=== PATIENT | male | born 1980 | race African-American/Black ===

== ENCOUNTER 2020-11-15 09:38 | Emergency (ER) | payer MEDICAID, OTHER ==
[~2020-11-15] VITALS: Ht 182.9 cm; Wt 98.0 kg
[2020-11-15 09:40] VITALS: BP 141/89
[2020-11-15] MEDS ORDERED: IBUPROFEN 600MG TABLET PO ONE (10:45)
[2020-11-15] MEDS ORDERED: LIDOCAINE HCL/PF 1% 10 MG/ML 5ML VIAL INFIL ONE (10:45)
[2020-11-15] MEDS ORDERED: IBUP-2029 PO (11:34)
== END 2020-11-15 11:49 | disposition home or self-care (01) ==
LOC: ER 09:47
DX: S61.214A Laceration without foreign body of right ring finger without damage to nail, initial encounter (principal); W25.XXXA Contact with sharp glass, initial encounter; Y93.89 Activity, other specified; Y92.89 Other specified places as the place of occurrence of the external cause; Y99.8 Other external cause status
CPT/HCPCS: 12001; 99282; J3490; Z7610

== ENCOUNTER 2022-03-15 12:49 | Emergency (ER) | payer OTHER ==
[~2022-03-15] VITALS: Ht 172.7 cm; Wt 78.0 kg
[~2022-03-15 12:49] MED LIST: IBUP-2029 PO
[2022-03-15 12:59] VITALS: BP 127/84
[2022-03-15] MEDS ORDERED: CEPH500C2 MT (14:10)
== END 2022-03-15 14:25 | disposition home or self-care (01) ==
LOC: ER 12:49
DX: L03.012 Cellulitis of left finger (principal); J45.909 Unspecified asthma, uncomplicated
CPT/HCPCS: 99283

== ENCOUNTER 2022-12-13 19:33 | Emergency (ER) | payer SELFPAY ==
[~2022-12-13] VITALS: Ht 182.9 cm; Wt 96.0 kg
[~2022-12-13 19:33] MED LIST changes: +CEPH500C2 MT
[2022-12-13 19:43] VITALS: O2SAT 100
[2022-12-13] MEDS ORDERED: TRAMADOL 50MG TABLET PO ONE (22:15)
[2022-12-13] MEDS ORDERED: FLUORESCEIN SODIUM 1MG/STRIP RIGHTEYE ONE (22:45)
[2022-12-13] MEDS ORDERED: TETRACAINE 0.5% OPHTH DROPS 4ML LEFTEYE ONE (23:00)
[2022-12-13] MEDS ORDERED: KETOROLAC 30MG/ML VIAL IM ONE (23:00)
[2022-12-13] MEDS ORDERED: ERYT1OIN6 EACHEYE (23:05)
[2022-12-13] MEDS ORDERED: NAPR-1176 MT (23:45)
[2022-12-14 00:29] VITALS: BP 115/80; PULSE 98; RESP 16; TEMP 98.6
== END 2022-12-14 00:29 | disposition home or self-care (01) ==
LOC: ER 19:33
DX: S06.9XAA Unspecified intracranial injury with loss of consciousness status unknown, initial encounter (principal); S05.01XA Injury of conjunctiva and corneal abrasion without foreign body, right eye, initial encounter; Y04.0XXA Assault by unarmed brawl or fight, initial encounter; Y93.89 Activity, other specified; Y92.89 Other specified places as the place of occurrence of the external cause; Y99.8 Other external cause status
CPT/HCPCS: 70150; 96372; 99283; J1885; Z7610

== ENCOUNTER 2023-05-04 06:26 | Emergency (ER) | payer SELFPAY ==
[~2023-05-04] VITALS: Ht 180.3 cm; Wt 100.0 kg
[~2023-05-04 06:26] MED LIST changes: +ERYT1OIN6 EACHEYE; +NAPR-1176 MT
[2023-05-04 06:39] VITALS: BP 129/89; PULSE 108; RESP 18; TEMP 98.5; O2SAT 100
== END 2023-05-04 08:10 | disposition left against medical advice (07) ==
LOC: ER 06:26
DX: Z53.21 Procedure and treatment not carried out due to patient leaving prior to being seen by health care provider (principal)
CPT/HCPCS: 99281

== ENCOUNTER 2023-11-10 08:27 | Inpatient (IN) | payer MEDICAID ==
[~2023-11-10] VITALS: Ht 188 cm; Wt 98.9 kg
[2023-11-10 08:29] VITALS: O2SAT 99
[2023-11-10] MEDS: IOHEXOL-350 100 ML BOTTLE ONE (09:08)
[2023-11-10 09:15] LABS: BASOPHILS % 0.4 % (0.0-2.0); EOSINOPHILS % 2.1 % (0.0-5.0); HEMATOCRIT. 43.4 % (42.0-52.0); HEMOGLOBIN. 14.2 g/dL (14.0-18.0); MEAN CORPUSCULAR HEMOGLOBIN 30.9 pg (28.0-32.0); MEAN CORPUSCULAR HGB CONC 32.8 g/dL (31.0-37.0); MEAN PLATELET VOLUME 8.7 fl (7.4-10.4); MONOCYTES % 6.5 % (2.0-8.0); PLATELET 166 x1000/uL (130-400); RED BLOOD CELL COUNT 4.61 mill/uL (4.7-6.1); RED CELL DISTRIBUTION WIDTH 14.5 % (11.6-14.6); WHITE BLOOD COUNT 9.3 x1000/uL (4.5-11.0)
[2023-11-10 09:24] LABS: CHLORIDE 108 mEq/L (98-107); POTASSIUM 3.8 mEq/L (3.5-5.1); SODIUM 138 mEq/L (136-145)
[2023-11-10 09:25] LABS: CALCIUM 8.6 mg/dL (8.7-10.4); CARBON DIOXIDE 26 mEq/L (21-32)
[2023-11-10 09:30] LABS: CREATININE 0.9 mg/dL (0.6-1.3); GLUCOSE 96 mg/dL (70-105); UREA NITROGEN BLOOD 8 mg/dL (9-23)
[2023-11-10 09:47] LABS: CLARITY URINE CLEAR (CLEAR); COLOR URINE YELLOW (YELLOW); GLUCOSE URINE NEGATIVE (NEGATIVE); KETONES URINE NEGATIVE (NEGATIVE); LEUKOCYTE ESTERASE URINE NEGATIVE (NEGATIVE); NITRITE URINE NEGATIVE (NEGATIVE); OCCULT BLOOD URINE NEGATIVE (NEGATIVE); PH URINE 6.5 (4.5-8.0); PROTEIN URINE NEGATIVE (NEGATIVE); SPECIFIC GRAVITY URINE 1.065 (1.005-1.030); UROBILINOGEN URINE 0.2 E.U./dL (0.2-1.0)
[2023-11-10 09:49] LABS: ETHANOL BLOOD < 10 mg/dL (<10); TROPONIN I HIGH SENSITIVITY < 4 ng/L (3.0-53)
[2023-11-10 10:02] LABS: *AMPHETAMINES SCREEN URINE NEGATIVE (NEGATIVE); *BARBITURATES SCREEN URINE NEGATIVE (NEGATIVE); *COCAINE SCREEN URINE NEGATIVE (NEGATIVE); METHADONE URINE SCREEN NEGATIVE (NEGATIVE); OPIATES URINE SCREEN NEGATIVE (NEGATIVE)
[2023-11-10 10:03] LABS: ECSTASY MDMA SCREEN URINE NEGATIVE (NEGATIVE)
[2023-11-10 13:19] LABS: *BENZODIAZEPINES SCREEN URINE NEGATIVE (NEGATIVE); CANNABINOID URINE SCREEN PRESUMPTIVE POSITIVE (NEGATIVE); PHENCYCLIDINE URINE SCREEN NEGATIVE (NEGATIVE)
[2023-11-10] MEDS ORDERED: DIPHENHYDRAMINE 50MG/ML VIAL IV PRN (15:30)
[2023-11-10] MEDS ORDERED: CLONIDINE 0.1MG TABLET PO PRN (15:30)
[2023-11-10] MEDS ORDERED: ACETAMINOPHEN 325MG TABLET PO PRN (15:30)
[2023-11-10] MEDS ORDERED: IPRATROPIUM/ALBUTEROL 0.5-3(2.5)MG/3ML NEB HHN PRN (15:30)
[2023-11-10] MEDS ORDERED: ONDANSETRON HCL 4MG/2ML INJ IV PRN (15:30)
[2023-11-10 16:20] VITALS: BP 121/67; PULSE 68; RESP 18; TEMP 97.7
[2023-11-10 16:51] VITALS: BP 121/67; PULSE 68; RESP 18; TEMP 97.7
[2023-11-10] MEDS: ASPIRIN 81MG TABLET PO SCH (17:09)
[2023-11-10] MEDS ORDERED: ATORVASTATIN CALCIUM 20MG TABLET PO SCH (21:00)
[2023-11-10] MEDS ORDERED: ATORVASTATIN CALCIUM 40MG TABLET PO SCH (21:00)
== END 2023-11-10 20:10 | disposition left against medical advice (07) | DRG 47 ==
LOC: ER 08:27 → 7WST 09:38 → EDBEDREQ 09:41
PROVIDERS: ADMIT Internal Medicine; ATTEND Internal Medicine
DX: G45.9 Transient cerebral ischemic attack, unspecified (principal); F17.200 Nicotine dependence, unspecified, uncomplicated; G51.0 Bell's palsy; R00.1 Bradycardia, unspecified; J45.909 Unspecified asthma, uncomplicated; Z53.29 Procedure and treatment not carried out because of patient's decision for other reasons; Z86.73 Personal history of transient ischemic attack (TIA), and cerebral infarction without residual deficits
CPT/HCPCS: 36415; 70496; 70498; 70551; 71045; 80048; 80061; 80305; 80320; 81003; 83036; 84484; 85025; 93005; 99291; Q9967; G0480